=== PATIENT | male | born 1965 | race Caucasian/White ===

== ENCOUNTER 2019-05-17 00:05 | Emergency (ER) | payer BC ==
[~2019-05-17] VITALS: Ht 185.4 cm; Wt 136.1 kg
[~2019-05-17 00:05] MED LIST: CLINDAMYCIN HC150 MG ORAL; HYDROCODON-ACE1 EA15 ORAL; INDOMETHACIN75 MG ORAL
[2019-05-17 00:12] VITALS: BP 105/66
--- NOTE | 2019-05-17 00:12 | NUR ---
ED Nurse Note: Walk-in patient accompanied by significant other, with complaints of SOB x 2 days and cough x 4 days. Patient reports history of fever and is currently mildly febrile.
[2019-05-17] MEDS ORDERED: PROSCAR5 MG ORAL (00:18)
[2019-05-17] MEDS ORDERED: DICLOFENAC SODI75 MG ORAL (00:18)
[2019-05-17] MEDS ORDERED: LOSARTAN POTASS50 MG ORAL (00:18)
[2019-05-17] MEDS ORDERED: BIKTARVY 50-201 EACH PO (00:18)
[2019-05-17] MEDS ORDERED: OMEPRAZOLE40 M1 ORAL (00:18)
[2019-05-17] MEDS ORDERED: PRAVASTATIN SOD80 M1 ORAL (00:18)
--- NOTE | 2019-05-17 00:30 | NUR ---
ED Nurse Note: IV started at left hand, 20G patent, blood drawn and urine specimen pending viod. Fluids running 4L N/S. Will continue to monitor.
--- NOTE | 2019-05-17 00:37 | Emergency Room Report ---
History of Present Illness General Chief Complaint: Generalized Weakness Source: Patient Present Illness HPI This a 53-year-old male with a history of HIV and high blood pressure. His CD4 count is normal and his viral load is undetectable. He presents with complaint of fever and weakness. Onset for 1 day. Fever was 101 at home. Has generalized body pain. He has nonproductive cough. Also with congestion. He does have sick contact because he has been in and out of the hospital for the last 2 months. His partners mom has been sick and he has been visiting her. Generalized body pain of 7 out of 10. He took some NyQuil tonight. He denies any trauma. No chest pain. Worse with movement and exertion. Better with rest. No recent travel to [place]. No exposure to anybody coming back from [place]. Allergies: Coded Allergies: No Known Allergies (Unverified , 03/12/16) Patient History Past Medical History: see triage record, old chart reviewed, HTN, HIV Past Surgical History: other Pertinent Family History: none Social History: Denies: smoking Immunizations: other Reviewed Nursing Documentation: PMH: Agreed; PSxH: Agreed Nursing Documentation-PMH Past Medical History: No History, Except For Hx Hypertension: Yes Review of Systems Constitutional: Reports: fever, malaise Eye: Denies: eye pain, blurred vision ENT: Denies: ear pain, nose congestion, throat swelling Respiratory: Reports: cough, shortness of breath Cardiovascular: Denies: chest pain, palpitations Gastrointestinal: Denies: abdominal pain, diarrhea, nausea, vomiting Musculoskeletal: Denies: back pain, joint pain Skin: Denies: rash Neurological: Denies: headache, numbness Endocrine: Denies: increased thirst, increased urine Hematologic/Lymphatic: Denies: easy bruising All Other Systems: negative except mentioned in HPI Physical Exam Vital Signs Date Time Temp Pulse Resp B/P (MAP) Pulse Ox O2 Delivery O2 Flow Rate FiO2 20 00:12 100.6 82 18 105/66 (79) 90 Room Air Vitals with fever and hypoxia. Repeat pulse ox is 93% on room air Sp02 EP Interpretation: reviewed, abnormal General Appearance: well appearing, no apparent distress, alert Head: normocephalic, atraumatic Eyes: bilateral eye PERRL, bilateral eye EOMI ENT: hearing grossly normal, normal pharynx Neck: full range of motion, supple, no meningismus Respiratory: chest non-tender, decreased breath sounds Cardiovascular #1: regular rate, rhythm, no murmur Gastrointestinal: normal bowel sounds, non tender, no mass, no organomegaly, no bruit, non-distended Musculoskeletal: back normal, normal range of motion, gait/station normal Psychiatric: mood/affect normal Medical Decision Making Diagnostic Impression: Primary Impression: Influenza A ER Course Patient presents with fever cough and weakness. He is positive for influenza A. [place] better after breathing treatment. No evidence of ACS, PE, pneumonia, sepsis or other serious bacterial infection. Chest X-Ray Diagnostic Results Chest X-Ray Diagnostic Results : Chest X-Ray Ordered: Yes # of Views/Limited/Complete: 1 View Indication: Shortness of Breath EP Interpretation: Yes Interpretation: no consolidation, no effusion, no pneumothorax, other - Granuloma right upper lobe, no change Impression: No acute disease Electronically Signed by: Randal Tobin MD Last Vital Signs Date Time Temp Pulse Resp B/P (MAP) Pulse Ox O2 Delivery O2 Flow Rate FiO2 05/17/19 00:12 100.6 82 18 105/66 (79) 90 Room Air Status: improved Disposition: HOME, SELF-CARE Condition: Stable Scripts Oseltamivir Phosphate (Tamiflu) 75 Mg Capsule 75 MG ORAL TWICE A DAY, #10 CAP Prov: Randal Tobin MD 05/17/19 Albuterol Sulfate* (ALBUTEROL SULFATE MDI*) 8.5 Gm Hfa.aer.ad 2 PUFF INH Q4H PRN for cough/wheezing, #1 EA 0 Refills Prov: Randal Tobin MD 05/17/19 Ibuprofen* (MOTRIN*) 600 Mg Tablet 600 MG ORAL THREE TIMES A DAY, #30 TAB 0 Refills Prov: Randal Tobin MD 05/17/19 Referrals: NON PHYSICIAN (PCP) Additional Instructions: Rest. Increase fluids. Follow-up with in 7 days. Return if worse. Randal Tobin MD May 17, 2019 00:37
[2019-05-17] MEDS ORDERED: Albuterol ud Inhalation HHN ONE (00:45)
[2019-05-17] MEDS ORDERED: Sodium Chloride 4,100 ML IVLG ONE (00:45)
[2019-05-17] MEDS ORDERED: Acetaminophen 500mg (ES) tab ORAL ONE (00:45)
--- NOTE | 2019-05-17 00:45 | NUR ---
ED Nurse Note: XRAY at bedside.
[2019-05-17 00:46] LABS: BASOPHILS % (AUTO) 1.2 % (0.0-2.0); EOSINOPHILS % (AUTO) 3.1 % (0.0-3.0); HEMATOCRIT 46.3 % (42.0-52.0); HEMOGLOBIN 16.2 G/DL (14.2-18.0); MEAN CORPUSCULAR VOLUME 91 FL (80-99); MONOCYTES % (AUTO) 13.4 % (1.0-10.0); NEUTROPHILS % (AUTO) 57.4 % (45.0-75.0); PLATELET COUNT 179 K/UL (150-450); RED BLOOD COUNT 5.08 M/UL (4.70-6.10); RED CELL DISTRIBUTION WIDTH 11.4 % (11.6-14.8); WHITE BLOOD COUNT 8.8 K/UL (4.8-10.8)
[2019-05-17 00:55] LABS: ANION GAP 12 mmol/L (5-15); BLOOD UREA NITROGEN 17 mg/dL (7-18); CARBON DIOXIDE 23 MMOL/L (21-32); CHLORIDE 102 MMOL/L (98-107); CREATININE 1.5 MG/DL (0.55-1.30); POTASSIUM 3.8 MMOL/L (3.5-5.1); SODIUM 137 MMOL/L (136-145)
[2019-05-17 01:00] LABS: ALANINE AMINOTRANSFERASE 124 U/L (12-78); ALBUMIN 3.7 G/DL (3.4-5.0); ALKALINE PHOSPHATASE 60 U/L (46-116); ASPARTATE AMINO TRANSFERASE 77 U/L (15-37); BILIRUBIN,TOTAL 0.7 MG/DL (0.2-1.0)
--- NOTE | 2019-05-17 01:00 | NUR ---
ED Nurse Note: Patient tolerated breathing treatment well, saturation still below 94% a 90-91%, patient placed on 2l O2 via NC for comfort and compensation measures. Will continue to monitor.
[2019-05-17] MEDS ORDERED: IBUPROFEN600 MG ORAL (01:44)
[2019-05-17] MEDS ORDERED: TAMIFLU75 MG ORAL (01:44)
[2019-05-17] MEDS ORDERED: ALBUTEROL SULF8.5 GM INH (01:44)
[2019-05-17] MEDS ORDERED: Oseltamivir 75mg cap ORAL ONE (01:45)
--- NOTE | 2019-05-17 01:55 | NUR ---
ER DISCHARGE NOTE: Patient is cleared to be discharged per ERMD, pt is aox4, on room air, with stable vital signs. pt was given dc and prescription instructions, pt was able to verbalize understanding, pt id band and iv site removed without complications. pt is able to ambulate with steady gait. pt took all belongings.
[2019-05-17 01:56] VITALS: BP 105/66
--- NOTE | 2019-05-17 16:32 | Diagnostic Imaging Report ---
Indication: Dyspnea Comparison: 10/04/2007 A single view chest radiograph was obtained. Findings: Who hemidiaphragm is elevated. Lung volumes are low. Cardiomegaly is present. Bones are unremarkable. Castration noted in the right upper lobe. IMPRESSION: Elevated right hemidiaphragm. Calcified granuloma the right upper lobe Cardiomegaly
== END 2019-05-17 01:56 | disposition home or self-care (01) ==
LOC: EMR 00:27
DX: J10.1 Influenza due to other identified influenza virus with other respiratory manifestations (principal); I10 Essential (primary) hypertension; R53.1 Weakness
CPT/HCPCS: 36415; 71045; 80053; 83605; 85025; 86710; 87040; 96360; 99284; J7030